=== PATIENT | female | born 1965 | race Caucasian/White ===

== ENCOUNTER 2017-04-05 03:26 | Inpatient (IN) | payer OTHER ==
[~2017-04-05] VITALS: Ht 170.2 cm; Wt 89.1 kg
[2017-04-05 03:33] VITALS: BP 131/74; PULSE 91; RESP 20; TEMP 98.4; O2SAT 100
[2017-04-05] MEDS ORDERED: SODIUM CHLORIDE 0.9% FLUSH 10 ML FLUSH IV FLUSH PRN (04:00)
[2017-04-05] MEDS ORDERED: Post-op Orders (for Pharmacy) MISC XX ONE (04:00)
[2017-04-05] MEDS ORDERED: NALOXONE HCL 0.4 MG/ML AMP IV PRN (04:00)
[2017-04-05] MEDS: SODIUM CHLOR 0.9% 1000 ML INJ 1,000 ML IV SCH ×2 (04:06→13:50)
[2017-04-05] MEDS: MORPHINE SULFATE 4 MG/ML INJ IV PRN ×2 (04:06→07:22)
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
[2017-04-05 05:50] VITALS: BP 126/74; PULSE 73; RESP 17; TEMP 97.2; O2SAT 98
[2017-04-05] MEDS ORDERED: PANTOPRAZOLE SOD 40 MG DELAYED RELEASE TAB PO SCH (06:00)
[2017-04-05] MEDS: METHOCARBAMOL 500 MG TAB PO SCH ×2 (06:10→13:36)
[2017-04-05 07:10] VITALS: BP 128/75; PULSE 74; RESP 18; TEMP 98.8; O2SAT 100
[2017-04-05] MEDS ORDERED: LACTULOSE SYRUP 20 GM/30 ML CUP PO PRN (07:30)
[2017-04-05] MEDS: ONDANSETRON HCL 4 MG/2 ML VIAL IV PRN ×2 (08:53→17:53)
[2017-04-05] MEDS: ACETAMINOPHEN 1000 MG/100 ML VIAL IV SCH ×2 (08:55→16:00)
[2017-04-05] MEDS ORDERED: LIDOCAINE HCL 5% PATCH T-DERMAL SCH (09:00)
[2017-04-05] MEDS ORDERED: DOCUSATE SODIUM 50 MG/SENNA 8.6 MG TAB PO SCH (09:00)
[2017-04-05] MEDS ORDERED: SODIUM CHLORIDE 0.9% FLUSH 10 ML FLUSH IV FLUSH SCH (09:00)
[2017-04-05] MEDS: oxyCODONE/ACETAMINOPHEN 5 MG/325 MG TAB PO PRN ×2 (09:01→13:36)
[2017-04-05] MEDS ORDERED: OXYC1TAB63 PO (10:08)
[2017-04-05] MEDS ORDERED: METH500T3 PO (11:04)
[2017-04-05 11:42] VITALS: BP 141/68; PULSE 73; RESP 18; TEMP 96.4; O2SAT 97
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
--- NOTE | 2017-04-05 12:24 | PD.CAR.PN ---
CVT Progress Note Subjective/Hospital Course: 04/05/17 Patient doing very well this morning She is awake alert and oriented complaining by the pain in the right chest which is moderate Bilateral good breath sounds and pneumothorax is completely resolved Abdomen soft active bowel sounds Neurologically patient is fully intact We'll repeat CBC and all things equal we'll discharge patient today Objective: Vital Signs Date Time Temp Pulse Resp B/P (MAP) Pulse Ox O2 Delivery O2 Flow Rate FiO2 04/05/17 11:42 96.4 73 18 141/68 (92) 97 04/05/17 07:10 98.8 74 18 128/75 (92) 100 04/05/17 05:50 97.2 73 17 126/74 (91) 98 04/05/17 04:16 16 04/05/17 03:33 98.4 91 20 131/74 (93) 100 Brenden Herrera MD Apr 05, 2017 12:24
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
--- NOTE | 2017-04-05 13:40 | RADRPT ---
EXAM DATE/TIME: 04/05/2017 09:37 [place] COMPARISON: No previous studies available for comparison. INDICATIONS : Right rib pain. MEDICAL HISTORY : None. SURGICAL HISTORY : Brest augmentation. ENCOUNTER: Subsequent ACUITY: 2 days PAIN SCORE: 8/10 LOCATION: Right chest FINDINGS: A single view of the chest demonstrates the lungs to be symmetrically aerated without evidence of mas s, infiltrate or effusion. A small sized pneumothorax on the right. The cardiomediastinal contours ar e unremarkable. Age-indeterminate rib fractures posteriorly on the right involving the seventh and ei ghth ribs. CONCLUSION: 1. Age indeterminate seventh and eighth rib fractures. 2. Small apical pneumothorax on the right. Cj Dangelo Jr., MD on April 05, 2017 at 13:30 Board Certified Radiologist. This report was verified electronically.
[2017-04-05 14:36] LABS: HEMATOCRIT 38.8 % (35.0-46.0); MEAN CELL VOLUME 98.3 FL (80.0-100.0); MEAN CORPUSCULAR HEMOGLOBIN 33.1 PG (27.0-34.0); MEAN CORPUSCULAR HGB CONC 33.7 % (32.0-36.0); PLATELET COUNT 260 TH/MM3 (150-450); RED BLOOD COUNT 3.95 MIL/MM3 (4.00-5.30); RED CELL DISTRIBUTION WIDTH 13.6 % (11.6-17.2); REVIEW FLAG FINAL; WHITE BLOOD COUNT 7.6 TH/MM3 (4.0-11.0)
[2017-04-05 14:55] LABS: BICARBONATE 25.4 MEQ/L (21.0-32.0)
[2017-04-05 16:00] VITALS: BP 153/81; PULSE 60; RESP 16; TEMP 98; O2SAT 100
[2017-04-05] MEDS ORDERED: REMOVE OLD LIDOCAINE PATCH T-DERMAL SCH (21:00)
== END 2017-04-05 19:12 | disposition home or self-care (01) | DRG 200 ==
LOC: NEPC 03:26 → NEDA 03:50 → N06B 06:02
PROVIDERS: ADMIT Surgery; ATTEND Surgery
DX: S27.0XXA Traumatic pneumothorax, initial encounter (principal); S22.41XA Multiple fractures of ribs, right side, initial encounter for closed fracture; S30.1XXA Contusion of abdominal wall, initial encounter; M19.90 Unspecified osteoarthritis, unspecified site; F32.9 Major depressive disorder, single episode, unspecified; M41.9 Scoliosis, unspecified; V43.52XA Car driver injured in collision with other type car in traffic accident, initial encounter
CPT/HCPCS: 71010; 80048; 85027; 94150; 99285; J0131; J2270; J2405; J7030